=== PATIENT | male | born 1990 | race Caucasian/White ===

== ENCOUNTER 2023-04-15 08:28 | Emergency (ER) | payer OTHER, SELFPAY ==
[2023-04-15 08:31] VITALS: BP 114/79; PULSE 88; RESP 18; TEMP 36.8; O2SAT 98; BMI 32.9
--- NOTE | 2023-04-15 08:42 | ECG_ITS ---
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
--- NOTE | 2023-04-15 08:49 | ED.PSYCH1 ---
HPI - Psych General Chief Complaint: Psychiatric Symptoms Stated Complaint: SUICIDAL Time Seen by Provider: 04/15/23 08:42 Source: Reports patient Mode of arrival: ambulance Limitations: Reports no limitations History of Present Illness HPI Narrative: 32-year-old male presents because he wants to hurt himself. He's been going through some back issues he states and he's been depressed. He states he bent over today to make it hurt more. He's been drinking alcohol today and denies any drug use. He did not overdose on any pills. He has a history of depression and states he's taking an antidepressant prescribed by the [facility] but he states he thinks it makes it worse. He is also on Neurontin. Other than this ongoing back pain he doesn't have any other physical complaints such as fever or cough or chest pain. These thoughts entered his mind today. Related Data Allergies Allergy/AdvReac Type Severity Reaction Status Date / Time No Known Drug Allergies Allergy Verified 04/15/23 08:31 Review of Systems ROS Narrative A ten point review of systems is negative except as noted above. Musculoskeletal Reports: back pain Exam Narrative Exam Narrative: Nurses note and vital signs reviewed and patient is not hypoxic. General: The patient appears well and in no apparent distress. Patient is resting comfortably on cart. Skin: Warm, dry, no pallor noted. There is no rash noted. Head: Normocephalic, atraumatic Eye: Normal conjunctiva, no drainage Ears, Nose, Mouth, and Throat: oral mucosa is moist. Nares patent. Cardiovascular: Regular Rate and Rhythm Respiratory: Patient is in no distress, no accessory muscle use, lungs are clear to auscultation, no wheezing, rales or rhonchi Back: no bruise rash or abrasion GI: soft and nontender Musculoskeletal: The patient has no evidence of calf tenderness, no pitting edema, symmetrical pulses noted bilaterally Neurological: A&O x4, normal speech Psychiatric: Cooperative Constitutional Vital Signs, click to edit/add: Last Vital Signs Temp 98.2 F 04/15/23 08:31 Pulse 88 04/15/23 08:31 Resp 18 04/15/23 08:31 BP 114/79 04/15/23 08:31 Pulse Ox 98 04/15/23 08:31 O2 Del Method Room Air 04/15/23 08:31 Course Vital Signs Vital signs: Vital Signs Temperature 98.2 F 04/15/23 08:31 Pulse Rate 88 04/15/23 08:31 Respiratory Rate 18 04/15/23 08:31 Blood Pressure 114/79 04/15/23 08:31 Pulse Oximetry 98 04/15/23 08:31 Oxygen Delivery Method Room Air 04/15/23 08:31 Temperature 98.2 F 04/15/23 08:31 Pulse Rate 88 04/15/23 08:31 Respiratory Rate 18 04/15/23 08:31 Blood Pressure 114/79 04/15/23 08:31 Pulse Oximetry 98 04/15/23 08:31 Oxygen Delivery Method Room Air 04/15/23 08:31 MDM - Psych MDM Narrative Medical decision making narrative: the patient presented with suicidal thoughts. Alcohol level is too high for psychiatric consultation so he's been observed and the patient is signed out to Dr. Aguilera. initial alcohol level was 323. Differential Diagnosis Differential diagnosis: Likely suicidal ideation, depression and acute anxiety Lab Data Attestation: I reviewed the patient's lab results. Labs: Lab Results 04/15/23 04/15/23 04/15/23 Range/Units 08:32 08:55 15:48 WBC 12.2 H (4.0-11.0) 10^3/uL RBC 5.15 (4.70-6.10) 10^6/uL Hgb 15.8 (14.0-18.0) g/dL Hct 44.5 (42.0-54.0) % MCV 86.4 (80.0-94.0) fL MCH 30.7 (25.9-34.0) pg MCHC 35.5 H (29.9-35.2) g/dL RDW 13.3 (11.0-15.0) % Plt Count 233 (150-450) 10^3/uL MPV 9.5 (9.5-13.5) fL Neut % (Auto) 60.3 (43.0-75.0) % Lymph % (Auto) 30.3 (20.5-60.0) % [place] % (Auto) 7.1 (1.7-12.0) % Eos % (Auto) 0.7 L (0.9-7.0) % Baso % (Auto) 0.5 (0.2-2.0) % Neut # (Auto) 7.4 H (1.4-6.5) 10^3/uL Lymph # (Auto) 3.7 (1.2-3.8) 10^3/uL [place] # (Auto) 0.9 H (0.3-0.8) 10^3/uL Eos # (Auto) 0.1 (0.0-0.7) 10^3/uL Baso # (Auto) 0.1 (0.0-0.1) 10^3/uL Abs Immat Gran (auto) 0.13 H (0.00-0.03) 10^3/uL Imm/Tot Granulo (auto) 1.1 H (0.0-0.5) % Sodium 137 (136-145) mmol/L Potassium 3.3 L (3.5-5.1) mmol/L Chloride 102 (98-107) mmol/L Carbon Dioxide 23.7 (21.0-32.0) mmol/L Anion Gap 14.6 BUN 13.0 (7.0-18.0) mg/dL Creatinine 0.98 (0.70-1.30) mg/dL Est GFR ( Amer) >60 (>=60) Est GFR (Non-Af Amer) >60 (>=60) BUN/Creatinine Ratio 13.3 Glucose 105 (74-106) mg/dL Calcium 8.5 (8.5-10.1) mg/dL Total Bilirubin 0.5 (0.2-1.0) mg/dL AST 21 (15-37) U/L ALT 44 (16-63) U/L Alkaline Phosphatase 56 (46-116) U/L Total Protein 7.5 (6.4-8.2) g/dL Albumin 4.0 (3.4-5.0) g/dL Globulin 3.5 g/dL Albumin/Globulin Ratio 1.1 TSH 1.341 (0.358-3.740) uIU/mL Salicylates <2.8 (<=19.9) mg/dL Urine Opiates Screen Negative (NEGATIVE) Ur Buprenorphine Scrn Negative (NEGATIVE) Ur Oxycodone Screen Negative (NEGATIVE) Urine Methadone Screen Negative (NEGATIVE) Ur Propoxyphene Screen Negative (NEGATIVE) Acetaminophen <2.0 L (10.0-30.0) ug/mL Ur Barbiturates Screen Negative (NEGATIVE) U Tricyclic Antidepress Negative (NEGATIVE) Ur Phencyclidine Scrn Negative (NEGATIVE) Ur Amphetamines Screen Negative (NEGATIVE) U Methamphetamines Scrn Negative (NEGATIVE) U Benzodiazepines Scrn Negative (NEGATIVE) Urine Cocaine Screen Negative (NEGATIVE) U Cannabinoids Screen Positive A (NEGATIVE) Ethanol Quant 323 168 mg/dL ECG Data Attestation: I personally reviewed and interpreted this ECG as follows: (EKG on my interpretation shows sinus rhythm without acute change) Discharge Plan Discharge Chief Complaint: Psychiatric Symptoms Clinical Impression: Suicidal ideation Patient Disposition: Still a Patient Referrals: Physician,Non-Staff, MD [Primary Care Provider] - 1 week
[2023-04-15] MEDS: KETOROLAC TROMETHAMINE 60 MG/2 ML VIAL IM ×2 (08:53→17:58)
[2023-04-15 09:04] LABS: Basophils Absolute Auto 0.1 10^3/uL (0.0-0.1); Basophils Percent Auto 0.5 % (0.2-2.0); Eosinophils Absolute Auto 0.1 10^3/uL (0.0-0.7); Eosinophils Percent Auto 0.7 % (0.9-7.0); Hematocrit 44.5 % (42.0-54.0); Hemoglobin 15.8 g/dL (14.0-18.0); Immature Granulocytes Abs Auto 0.13 10^3/uL (0.00-0.03); Immature Granulocytes Pct Auto 1.1 % (0.0-0.5); Lymphocytes Absolute Auto 3.7 10^3/uL (1.2-3.8); Lymphocytes Percent Auto 30.3 % (20.5-60.0); Mean Corpuscular HGB Conc 35.5 g/dL (29.9-35.2); Mean Corpuscular Hemoglobin 30.7 pg (25.9-34.0); Mean Corpuscular Volume 86.4 fL (80.0-94.0); Mean Platelet Volume 9.5 fL (9.5-13.5); Monocytes Absolute Auto 0.9 10^3/uL (0.3-0.8); Monocytes Percent Auto 7.1 % (1.7-12.0); Neutrophils Absolute Auto 7.4 10^3/uL (1.4-6.5); Neutrophils Percent Auto 60.3 % (43.0-75.0); Platelet Count 233 10^3/uL (150-450); Red Blood Count 5.15 10^6/uL (4.70-6.10); Red Cell Distribution Width 13.3 % (11.0-15.0); White Blood Count 12.2 10^3/uL (4.0-11.0)
[2023-04-15 09:14] LABS: Amphetamine Screen Urine NEGATIVE (NEGATIVE); Barbiturates Screen Urine NEGATIVE (NEGATIVE); Benzodiazepines Screen Urine NEGATIVE (NEGATIVE); Buprenorphine Screen Urine NEGATIVE (NEGATIVE); Cannabinoid Screen Urine POSITIVE (NEGATIVE); Cocaine Screen Urine NEGATIVE (NEGATIVE); Methadone Screen Urine NEGATIVE (NEGATIVE); Methamphetamines Screen Urine NEGATIVE (NEGATIVE); Opiate Screen Urine NEGATIVE (NEGATIVE); Oxycodone Screen Urine NEGATIVE (NEGATIVE); Phencyclidine Screen Urine NEGATIVE (NEGATIVE); Tricyclic Antidepressant Urine NEGATIVE (NEGATIVE)
[2023-04-15 09:21] LABS: Alanine Aminotransferase 44 U/L (16-63); Albumin Globulin Ratio 1.1; Alkaline Phosphatase 56 U/L (46-116); Anion Gap 14.6; Aspartate Amino Transferase 21 U/L (15-37); BUN Creatinine Ratio 13.3; Bilirubin Total 0.5 mg/dL (0.2-1.0); Calcium 8.5 mg/dL (8.5-10.1); Carbon Dioxide 23.7 mmol/L (21.0-32.0); Chloride 102 mmol/L (98-107); Estimated GFR (African America >60 (>=60); Estimated GFR (Non-African Ame >60 (>=60); Ethanol 323 mg/dL; Globulin 3.5 g/dL; Glucose 105 mg/dL (74-106); Potassium 3.3 mmol/L (3.5-5.1); Sodium 137 mmol/L (136-145); Total Protein 7.5 g/dL (6.4-8.2)
--- NOTE | 2023-04-15 09:25 | XR_ITS ---
[facility] [id number] Patient Name: LIVIA DASILVA MRN: [id number] date: 1990 Sex: M Assigned Patient Location: ER Current Patient Location: ER Accession/Order Number: [id number] Exam Date: 04/15/2023 09:34 Report Date: 04/15/2023 10:07 At the request of: VANESSA FAULKNER Procedure: XR hand LT min 3V PROCEDURE: XR hand LT min 3V HISTORY: punched wall ; acute left hand pain COMPARISON: None. FINDINGS: BONES:Lytic, well-defined expansile lesion within fourth distal phalanx, 13 x 11 x 9 mm. Small separate corticated ossification adjacent the lateral proximal corner of the fourth proximal phalanx. SOFT TISSUES:No visible soft tissue swelling. EFFUSION:None visible. OTHER: Negative. XR/XR hand LT min 3V IMPRESSION: 1. No appreciable acute bone abnormality. 2. Small ossification lateral to the fourth metacarpophalangeal joint favoring sequela of remote injury. 3. 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 Aneurysmal bone cyst, giant cell tumor are felt less likely. Electronically authenticated by: VERONICA NICHOLAS Date: 04/15/2023 10:07
[2023-04-15 09:27] LABS: Salicylate <2.8 mg/dL (<=19.9); Thyroid Stimulating Hormone 1.341 uIU/mL (0.358-3.740)
[2023-04-15 09:35] LABS: Acetaminophen <2.0 ug/mL (10.0-30.0)
[2023-04-15 17:08] LABS: Ethanol 168 mg/dL
[2023-04-15 20:51] LABS: Ethanol 61 mg/dL
--- NOTE | 2023-04-15 21:20 | PC.NURSE ---
2119 called [facility] and talked to Charge nurse Rafael at [phone] and explained the pt has been in the ER for almost 13 hrs and was unable to talk to anyone from [facility] until the alcohol level came down from 300's to 60's. Now that the pt spoke with the [facility] given the spokes person for the [facility] has informed this ER that the pt may have to stay in the ER all night bc there is no therapist available to talk to this pt. This nurse explained pt will need to be placed as he is still suicidal with a plan and has already been in this ER for almost 13 hrs. I also explained we are now reaching out to this new Direct referral to [address] [place] [address] referral given to us for a guide. [address] Rafael from [address] [place] [address] called back and asked for the pt's information to be faxed to [address] [place] [address] so she is able to start with a direct admit
[2023-04-15] MEDS: ACETAMINOPHEN 325 MG TABLET 650 MG PO (22:33)
[2023-04-15] MEDS: ONDANSETRON PF 4 MG/2 ML VIAL IV (22:33)
[2023-04-15] MEDS: 0.9 % SODIUM CHLORIDE 1,000 ML 1000 ML IV (22:33)
[2023-04-15 22:50] VITALS: BP 120/95; PULSE 88; RESP 20; O2SAT 99
--- NOTE | 2023-04-15 22:50 | ED_ITS ---
HPI - Psych General Chief Complaint: Psychiatric Symptoms Stated Complaint: SUICIDAL Time Seen by Provider: 04/15/23 08:42 Source: Reports patient Mode of arrival: ambulance Limitations: Reports no limitations History of Present Illness HPI Narrative: This 32-year-old male was signed out to me at shift change. He presents for evaluation of depression with suicidal ideation. His alcohol was noted to be elevated and repeat alcohol was pending at the time of signout. The patient has not had any requirements besides Toradol for chronic neck pain while in the emergency department. Repeat alcohol testing was normal and the patient was persistently suicidal. The case was discussed with her lens oneself and he is accepted for admission. He did state that he was starting to feel hung over and was medicated with a liter of normal saline, Tylenol and Zofran. His vital signs have been normal. He has not had any signs of alcohol withdrawal. Related Data Allergies Allergy/AdvReac Type Severity Reaction Status Date / Time No Known Drug Allergies Allergy Verified 04/15/23 08:31 Exam Constitutional Vital Signs, click to edit/add: Last Vital Signs Temp 98.2 F 04/15/23 08:31 Pulse 88 04/15/23 08:31 Resp 18 04/15/23 08:31 BP 114/79 04/15/23 08:31 Pulse Ox 98 04/15/23 08:31 O2 Del Method Room Air 04/15/23 08:31 Course Vital Signs Vital signs: Vital Signs Temperature 98.2 F 04/15/23 08:31 Pulse Rate 88 04/15/23 08:31 Respiratory Rate 18 04/15/23 08:31 Blood Pressure 114/79 04/15/23 08:31 Pulse Oximetry 98 04/15/23 08:31 Oxygen Delivery Method Room Air 04/15/23 08:31 Temperature 98.2 F 04/15/23 08:31 Pulse Rate 88 04/15/23 08:31 Respiratory Rate 18 04/15/23 08:31 Blood Pressure 114/79 04/15/23 08:31 Pulse Oximetry 98 04/15/23 08:31 Oxygen Delivery Method Room Air 04/15/23 08:31 MDM - Psych Lab Data Labs: Lab Results 04/15/23 04/15/23 04/15/23 Range/Units 08:32 08:55 15:48 WBC 12.2 H (4.0-11.0) 10^3/uL RBC 5.15 (4.70-6.10) 10^6/uL Hgb 15.8 (14.0-18.0) g/dL Hct 44.5 (42.0-54.0) % MCV 86.4 (80.0-94.0) fL MCH 30.7 (25.9-34.0) pg MCHC 35.5 H (29.9-35.2) g/dL RDW 13.3 (11.0-15.0) % Plt Count 233 (150-450) 10^3/uL MPV 9.5 (9.5-13.5) fL Neut % (Auto) 60.3 (43.0-75.0) % Lymph % (Auto) 30.3 (20.5-60.0) % [place] % (Auto) 7.1 (1.7-12.0) % Eos % (Auto) 0.7 L (0.9-7.0) % Baso % (Auto) 0.5 (0.2-2.0) % Neut # (Auto) 7.4 H (1.4-6.5) 10^3/uL Lymph # (Auto) 3.7 (1.2-3.8) 10^3/uL [place] # (Auto) 0.9 H (0.3-0.8) 10^3/uL Eos # (Auto) 0.1 (0.0-0.7) 10^3/uL Baso # (Auto) 0.1 (0.0-0.1) 10^3/uL Abs Immat Gran (auto) 0.13 H (0.00-0.03) 10^3/uL Imm/Tot Granulo (auto) 1.1 H (0.0-0.5) % Sodium 137 (136-145) mmol/L Potassium 3.3 L (3.5-5.1) mmol/L Chloride 102 (98-107) mmol/L Carbon Dioxide 23.7 (21.0-32.0) mmol/L Anion Gap 14.6 BUN 13.0 (7.0-18.0) mg/dL Creatinine 0.98 (0.70-1.30) mg/dL Est GFR ( Amer) >60 (>=60) Est GFR (Non-Af Amer) >60 (>=60) BUN/Creatinine Ratio 13.3 Glucose 105 (74-106) mg/dL Calcium 8.5 (8.5-10.1) mg/dL Total Bilirubin 0.5 (0.2-1.0) mg/dL AST 21 (15-37) U/L ALT 44 (16-63) U/L Alkaline Phosphatase 56 (46-116) U/L Total Protein 7.5 (6.4-8.2) g/dL Albumin 4.0 (3.4-5.0) g/dL Globulin 3.5 g/dL Albumin/Globulin Ratio 1.1 TSH 1.341 (0.358-3.740) uIU/mL Salicylates <2.8 (<=19.9) mg/dL Urine Opiates Screen Negative (NEGATIVE) Ur Buprenorphine Scrn Negative (NEGATIVE) Ur Oxycodone Screen Negative (NEGATIVE) Urine Methadone Screen Negative (NEGATIVE) Ur Propoxyphene Screen Negative (NEGATIVE) Acetaminophen <2.0 L (10.0-30.0) ug/mL Ur Barbiturates Screen Negative (NEGATIVE) U Tricyclic Antidepress Negative (NEGATIVE) Ur Phencyclidine Scrn Negative (NEGATIVE) Ur Amphetamines Screen Negative (NEGATIVE) U Methamphetamines Scrn Negative (NEGATIVE) U Benzodiazepines Scrn Negative (NEGATIVE) Urine Cocaine Screen Negative (NEGATIVE) U Cannabinoids Screen Positive A (NEGATIVE) Ethanol Quant 323 168 mg/dL 04/15/23 Range/Units 20:30 WBC (4.0-11.0) 10^3/uL RBC (4.70-6.10) 10^6/uL Hgb (14.0-18.0) g/dL Hct (42.0-54.0) % MCV (80.0-94.0) fL MCH (25.9-34.0) pg MCHC (29.9-35.2) g/dL RDW (11.0-15.0) % Plt Count (150-450) 10^3/uL MPV (9.5-13.5) fL Neut % (Auto) (43.0-75.0) % Lymph % (Auto) (20.5-60.0) % [place] % (Auto) (1.7-12.0) % Eos % (Auto) (0.9-7.0) % Baso % (Auto) (0.2-2.0) % Neut # (Auto) (1.4-6.5) 10^3/uL Lymph # (Auto) (1.2-3.8) 10^3/uL [place] # (Auto) (0.3-0.8) 10^3/uL Eos # (Auto) (0.0-0.7) 10^3/uL Baso # (Auto) (0.0-0.1) 10^3/uL Abs Immat Gran (auto) (0.00-0.03) 10^3/uL Imm/Tot Granulo (auto) (0.0-0.5) % Sodium (136-145) mmol/L Potassium (3.5-5.1) mmol/L Chloride (98-107) mmol/L Carbon Dioxide (21.0-32.0) mmol/L Anion Gap BUN (7.0-18.0) mg/dL Creatinine (0.70-1.30) mg/dL Est GFR ( Amer) (>=60) Est GFR (Non-Af Amer) (>=60) BUN/Creatinine Ratio Glucose (74-106) mg/dL Calcium (8.5-10.1) mg/dL Total Bilirubin (0.2-1.0) mg/dL AST (15-37) U/L ALT (16-63) U/L Alkaline Phosphatase (46-116) U/L Total Protein (6.4-8.2) g/dL Albumin (3.4-5.0) g/dL Globulin g/dL Albumin/Globulin Ratio TSH (0.358-3.740) uIU/mL Salicylates (<=19.9) mg/dL Urine Opiates Screen (NEGATIVE) Ur Buprenorphine Scrn (NEGATIVE) Ur Oxycodone Screen (NEGATIVE) Urine Methadone Screen (NEGATIVE) Ur Propoxyphene Screen (NEGATIVE) Acetaminophen (10.0-30.0) ug/mL Ur Barbiturates Screen (NEGATIVE) U Tricyclic Antidepress (NEGATIVE) Ur Phencyclidine Scrn (NEGATIVE) Ur Amphetamines Screen (NEGATIVE) U Methamphetamines Scrn (NEGATIVE) U Benzodiazepines Scrn (NEGATIVE) Urine Cocaine Screen (NEGATIVE) U Cannabinoids Screen (NEGATIVE) Ethanol Quant 61 mg/dL Discharge Plan Discharge Chief Complaint: Psychiatric Symptoms Clinical Impression: Suicidal ideation, Major depression, Alcohol intoxication Patient Disposition: [facility] Time of Disposition Decision: 22:53 Discharge Location: [facility] Condition: Good
[2023-04-16] MEDS: SERTRALINE HCL 50 MG TABLET PO (01:50)
== END 2023-04-16 02:15 ==
PROVIDERS: Emergency Medicine; Emergency Provider Emergency Medicine
DX: R45.851 Suicidal ideations (principal); F32.A Depression, unspecified; Z79.899 Other long term (current) drug therapy; F32.9 Major depressive disorder, single episode, unspecified; F10.129 Alcohol abuse with intoxication, unspecified; Y90.8 Blood alcohol level of 240 mg/100 ml or more
CPT/HCPCS: 36415; 73130; 80053; 80179; 80307; 80320; 80329; 84443; 85025; 93005; 96372; 96374; 99285